=== PATIENT | female | born 1960 | race Caucasian/White ===

== ENCOUNTER 2019-08-30 10:44 | Outpatient (CLI) | payer OTHER | END 2019-08-30 10:45 | disposition short-term general hospital (02) | LOC: EMS 10:44 | PROVIDERS: ATTEND Surgery | DX: R51 Headache (principal); R40.20 Unspecified coma; H92.02 Otalgia, left ear; R11.2 Nausea with vomiting, unspecified; R19.7 Diarrhea, unspecified; R47.89 Other speech disturbances | CPT/HCPCS: A0425; A0427 ==